=== PATIENT | male | born 1955 | race Caucasian/White ===

== ENCOUNTER 2016-08-18 17:09 | Emergency (ER) | payer OTHER, MEDICARE ==
--- NOTE | 2016-08-18 18:11 | DIAGNOSTIC IMAGING REPORT ---
PROCEDURE: XR CHEST 2 VIEW INDICATION: COUGH AND FEVER TECHNIQUE: PA and lateral views. COMPARISON: Chest 02/16/2014 and 08/05/2013 FINDINGS: Lungs are clear. Heart and mediastinum are normal. Thorax is normal. Pacemaker. IMPRESSION: 1. Negative chest.
--- NOTE | 2016-08-18 21:05 | ED CLINICAL REPORT ---
Clinical Report - Physicians/Mid Levels [facility] [address] [place] [address] 08/18/2016 17:12 Patient: MARY DOMINGUEZ Time Seen: 1721; initial patient contact. Arrived- By private vehicle. Historian- patient. HISTORY OF PRESENT ILLNESS Chief Complaint: FEVER. This started past few days and is still present. It is not gone now. Fever was abrupt in onset and has been persistent. The patient has had muscle aches, fatigue and a cough. No altered mental status, skin breakdown noted or rash or joint pain. Additional history - No known contact with a sick individual. Has not recently been ill. He is not immunocompromised. No recent hospitalization. No new medication recently administered. No recent travel. No known exposure to an animal. reports having aortic valve replacement in the remote past. Similar symptoms previously: None. REVIEW OF SYSTEMS All systems otherwise negative, except as recorded above. PAST HISTORY See nurses notes. Medications: MetFORMIN HCl Oral 500 mg, daily. Aspirin Oral. Allopurinol Oral (Tablet 300 mg), daily. Furosemide Oral (Tablet 40 mg), daily. Losartan Potassium Oral 30 MG, daily. Metoprolol Succinate Oral 50 mg, DAILY. ProAir HFA Inhalation 2 puffs, NEEDED. Symbicort Inhalation (Aerosol 160-4.5 mcg/act), NEEDED. Allergies: Tramadol. SOCIAL HISTORY Never smoker. Second-hand smoke exposure. No alcohol use or drug use. No recent travel. Is a local resident. ADDITIONAL NOTES The nursing notes have been reviewed. PHYSICAL EXAM Vital Signs: 08/18/2016 17:20 BP: 131/79. HR: 109. RR: 14. O2 saturation: 97%. Temp: 99.4 F. Pain level now: 7/10. Oxygen saturation normal. Appearance: Alert. No acute distress. (Pleasant. Cooperative. Nontoxic.). Eyes: Pupils equal, round and reactive to light. Eyes normal inspection. ENT: Ears normal. Nose normal. Pharynx normal. Uvula midline. Neck: Normal inspection. Neck supple. CVS: Normal heart rate and rhythm. 2/6 holosystolic systolic murmur with radiation to the neck (right upper sternal border). Pulses normal. Respiratory: No respiratory distress. Breath sounds normal. Chest nontender. Abdomen: Soft and nontender. Bowel sounds normal. Back: Normal inspection. No tenderness. Skin: Skin warm and dry. Normal skin color. No rash. Normal skin turgor. (No Osler's nodes. No Janeway lesions.). Extremities: Extremities exhibit normal ROM. Extremities nontender. Neuro: Oriented X 3. No motor deficit. No sensory deficit. LABS, X-RAYS, AND EKG Chest X-ray: (PROCEDURE: XR CHEST 2 VIEW INDICATION: COUGH AND FEVER TECHNIQUE: PA and lateral views. COMPARISON: Chest 02/16/2014 and 08/05/2013 FINDINGS: Lungs are clear. Heart and mediastinum are normal. Thorax is normal. Pacemaker. IMPRESSION: 1. Negative chest.). Laboratory Tests: UA-Culture if indicated: (DANICA: 08/18/2016 18:50) ( [facility] 08/18/2016 19:15) Final results Test Result Flag Units (Reference) URINE COLOR YELLOW URINE APPEARANCE CLEAR URINE GLUCOSE 3+ (NEGATIVE) URINE BILIRUBIN ICTOTEST NEGATIVE (NEGATIVE) URINE KETONE TRACE (NEGATIVE) URINE SPECIFIC GRAVITY 1.010 (1.010-1.030) URINE PH 6.5 (5.0-8.0) URINE PROTEIN 1+ (NEGATIVE) URINE UROBILINOGEN 1.0 EU/dL (0.2-1.0) URINE NITRITE NEGATIVE (NEGATIVE) URINE BLOOD TRACE (NEGATIVE) URINE LEUK ESTERASE NEGATIVE (NEGATIVE) URINE RBC 0-1 rbc/hpf (0-1) URINE WBC 0-1 wbc/hpf (0-1) URINE EPITHELIAL CELLS 0-1 EPI/hpf (0-5) URINE BACTERIA NONE SEEN (NONE SEEN) URINE COMMENT CULT NOT INDICATED URINE CULTURES ARE SET-UP BASED ON THE FOLLOWING CRITERIA:POSITIVE NITRITEPOSITIVE LEUKOCYTE ESTERASEGREATER THAN 10 WHITE BLOOD CELLSMODERATE (2+) OR GREATER BACTERIA CBC w Diff: (DANICA: 08/18/2016 17:45) ( [facility] 08/18/2016 18:00) Final results Test Result Flag Units (Reference) WHITE BLOOD COUNT 12.7 H K/uL (4.5-11.5) RED BLOOD COUNT 4.70 M/uL (4.50-5.90) HEMOGLOBIN 14.2 gm/dL (13.5-17.5) HEMATOCRIT 43.3 % (41.0-53.0) MEAN CELL VOLUME 92 fL (80-100) MEAN CORPUSCULAR HGB 30 pg (26-34) MEAN CORPUSCULAR HGB CONC 33 g/dL (31-37) RED CELL DISTRIBUTION WIDTH 14.8 % (11.6-14.8) PLATELET COUNT 223 K/uL (150-400) NEUTROPHIL % 67.1 % (50-75) LYMPH % 23.0 L % (25-40) MONO % 9.7 % (3-14) EOSINOPHIL % 0 % (0-4) BASOPHIL % 0.2 % (0-2) PT with INR: (DANICA: 08/18/2016 17:45) ( [facility] 08/18/2016 18:10) Final results Test Result Flag Units (Reference) INR 1.0 (0.8-1.2) Low Intensity Therapy: INR 1.5-2.0 PT range 18.5-23.1Mod.Intensity Therapy: INR 2.0-3.0 PT range 23.1-31.5High Intensity Therapy: INR 2.5-3.5 PT range 27.4-35.5High Intensity Therapy 2: INR 3.0-4.0 PT range 31.5-39.3 CMP: (DANICA: 08/18/2016 17:45) ( [facility] 08/18/2016 18:13) Final results Test Result Flag Units (Reference) GLUCOSE 203 H mg/dL (70-110) BUN 18 mg/dL (7-18) CREATININE 1.2 mg/dL (0.6-1.3) Estimated GFR >60 mL/min Estimated GFR- >60 mL/min Note: Persistent reduction over 3 months in eGFR<60 mL/min/1.73 m2 defines CKD. Patients with eGFR values>=60 mL/min/1.73 m2 may also have CKD if evidence ofpersistent proteinuria. Additional information may be foundat www.kidney.org. SODIUM 131 L mmol/L (136-145) POTASSIUM 4.8 mmol/L (3.5-5.1) CHLORIDE 94 L mmol/L (98-107) CARBON DIOXIDE 26 mmol/L (21-32) CALCIUM 8.6 mg/dL (8.5-10.1) TOTAL PROTEIN 8.2 g/dL (6.4-8.2) ALBUMIN 3.3 g/dL (3.3-5.0) BILIRUBIN, TOTAL 0.5 mg/dL (0.0-1.0) ALKALINE PHOSPHATASE 74 U/L (46-116) AST (SGOT) 26 U/L (15-37) ALT (SGPT) 24 U/L (12-78) RSV Rapid Screen: (DANICA: 08/18/2016 17:46) ( MsgRcvd 08/18/2016 18:30) Final results SPECIMEN DESCRIPTION: MUCUS Test Result Flag Units (Reference) RSV RAPID TEST DATE: 08/18/16 NEGATIVE SCREEN: NEGATIVE If Rapid RSV test is Negative but RSV is still suspected, a confirmatory RSV DFA can be requested. RAPID INFLUENZA SCREEN DATE: 08/18/16 INFLUENZA A: NEGATIVE SCREEN FOR INFLUENZA A INFLUENZA B: NEGATIVE SCREEN FOR INFLUENZA B . PROGRESS AND PROCEDURES Course of Care: the patient is a pleasant 60-year-old male presenting for evaluation of fever. At this time patient is having symptoms that are consistent with upper respiratory tract infection. Differential diagnoses at this time includes viral upper respiratory tract infection, bronchitis, or pneumonia. We'll also be evaluating the patient for urinary tract infection and possible metabolic derangements from his illness. Patient is noted to have a murmur on examination with history of aortic valve replacement. Patient states he does have a history of a murmur. Does not appear loud on examination and does not appear concerning for valvular insufficiency or vegetation from endocarditis. Patient also does not have any other stigmata of endocarditis on examination. If patient is not significantly improved while here in the emergency department, will consider monitoring the patient for possible endocarditis. The patient's workup is noted for negative chest x-ray. Labs or studies are noted to be significant for diabetes however no other abnormalities noted on patient's examination or history. Because the patient's negative workup and overall improvement with his symptoms following IV fluids and Tylenol, do not feel patient requires admission to the hospital or further emergency department workup/evaluation. Patient does require close monitoring however can be done as an outpatient. Patient continues to be nontoxic and in no acute distress. Head discussion with the patient in regards his workup here in the emergency department including diagnosis, home care, follow-up, and return precautions. All questions have been answered. The patient expressed understanding of these instructions and was agreeable to them. Disposition: Discharged. Condition: good. CLINICAL IMPRESSION Acute fever 08/18/2016 19:18 BP: 128/73. HR: 104. RR: 20. O2 saturation: 97%. Temp: 102.5 F. Pain level now: 5/10. Mild nausea (acute). No vomiting. Blood pressure normal. Oxygen saturation normal. Acute viral upper respiratory infection. INSTRUCTIONS Warnings: GENERAL WARNINGS: Return or contact your physician immediately if your condition worsens or changes unexpectedly, if not improving as expected, or if other problems arise. Specifically return if pain, vomiting, bleeding, breathing difficulty or fever. Your Current Medications: CONTINUE TAKING THE FOLLOWING MEDICATIONS: Allopurinol Oral : Tablet 300 mg, daily. Aspirin Oral. Furosemide Oral : Tablet 40 mg, daily. Losartan Potassium Oral : 30 MG daily. MetFORMIN HCl Oral : 500 mg daily. Metoprolol Succinate Oral : 50 mg DAILY. ProAir HFA Inhalation : 2 puffs NEEDED. Symbicort Inhalation : Aerosol 160-4.5 mcg/act, NEEDED. Prescription Medications: Zofran (orally disintegrating tablets) 4 mg: take 1 orally every 8 hours as needed for nausea and vomiting. Dispense ten (10). No refill. Substitution is permissible. Percocet 5 mg/325 mg: take 1-2 tablets orally every 6 hours as needed for pain. Dispense twelve (12). No refill. Substitution is permissible. Follow-up: Return to the emergency department as needed. Follow up with your doctor in three days. Reason for referral: recheck today's concerns. Summary of care provided to patient via paper. Screening today revealed the patient's blood pressure to be in the normal range. The patient should follow up with a primary care provider for blood pressure management. Understanding of the discharge instructions verbalized by patient. (Electronically signed by Ramirez Mccurdy Dr. 08/22/2016 7:05)
--- NOTE | 2016-08-18 21:05 | ED ORDER SUMMARY ---
..... Patient: MARY DOMINGUEZ OrderSheet [facility] VisitID: [id number] [place] [address] 60y, M Registration Date/Time: 08/18/2016 ORDER SHEET Weight: 111.1 kg (stated) Allergies: Tramadol GENERAL ORDERS: Chest 2V Urgent (17:39 08/18/2016 Jasmin Hankins) (Ack 17:42 Maury) (17:46 EHassan R.N.) Rapid Influenza Screen (Nasal Pharyngeal) (mucus) Urgent (17:40 08/18/2016 Jasmin Hankins) (Ack 17:42 Maury) (17:46 EHassan R.N.) RSV Rapid Screen (Nasal Pharyngeal) (mucus) Urgent (17:41 08/18/2016 Jasmin Hankins) (Ack 17:42 Maury) (17:46 EHassan R.N.) CBC w Diff Urgent (17:41 08/18/2016 Jasmin Hankins) (Ack 17:42 Maury) (17:46 EHassan R.N.) CMP Urgent (17:41 08/18/2016 Jasmin Hankins) (Ack 17:42 Maury) (17:46 EHassan R.N.) UA-Culture if indicated Urgent (17:41 08/18/2016 Jasmin Hankins) (Ack 17:42 Maury) (18:59 EHassan R.N.) PT with INR Urgent (17:41 08/18/2016 Jasmin Hankins) (Ack 17:42 Maury) (17:46 Ira R.N.) Pulse oximeter (17:41 08/18/2016 Jasmin Hankins) (17:46 EHassan R.N.) MEDICATION ORDERS: Tylenol PO 650 mg (NOW) (19:08 08/18/2016 Jasmin Hankins) (Ack 19:14 HSoule) (19:18 HSoule) IV FLUIDS: IV NS : initial bolus 1000 mL (1000 mL/hr), then none - for X1 (NOW) (17:39 08/18/2016 Jasmin Hankins) (18:10 Ira R.N.) Morphine IV 4 mg (HIGH ALERT MEDICATION, NOW) (18:03 08/18/2016 Jasmin Hankins) (18:11 Ira R.N.) okay per history Zofran IV 4 mg (NOW) (18:16 08/18/2016 Ira R.N. verbal order read back to Jasmin Hankins) (18:16 Ira R.N.) Morphine IV 4 mg (HIGH ALERT MEDICATION, NOW) (19:45 08/18/2016 Jasmin Hankins) (20:05 Cornel R.N.) okay per patient and hx ORDER SHEET NOTES: [Electronically signed by Fariba House (03:45 08/19/2016)] [Electronically signed by Ramirez Mccurdy Dr. (07:05 08/22/2016)] [Electronically locked/signed by Fariba House (03:45 08/19/2016)]
--- NOTE | 2016-08-18 21:05 | ED ORDER SUMMARY ---
..... Patient: MARY DOMINGUEZ OrderSheet [facility] VisitID: [id number] [place] [address] 60y, M Registration Date/Time: 08/18/2016 ORDER SHEET Weight: 111.1 kg (stated) Allergies: Tramadol GENERAL ORDERS: Chest 2V Urgent (17:39 08/18/2016 Jasmin Hankins) (Ack 17:42 Maury) (17:46 EHassan R.N.) Rapid Influenza Screen (Nasal Pharyngeal) (mucus) Urgent (17:40 08/18/2016 Jasmin Hankins) (Ack 17:42 Maury) (17:46 EHassan R.N.) RSV Rapid Screen (Nasal Pharyngeal) (mucus) Urgent (17:41 08/18/2016 Jasmin Hankins) (Ack 17:42 Maury) (17:46 EHassan R.N.) CBC w Diff Urgent (17:41 08/18/2016 Jasmin Hankins) (Ack 17:42 Maury) (17:46 EHassan R.N.) CMP Urgent (17:41 08/18/2016 Jasmin Hankins) (Ack 17:42 Maury) (17:46 EHassan R.N.) UA-Culture if indicated Urgent (17:41 08/18/2016 Jasmin Hankins) (Ack 17:42 Maury) (18:59 EHassan R.N.) PT with INR Urgent (17:41 08/18/2016 Jasmin Hankins) (Ack 17:42 Maury) (17:46 Ira R.N.) Pulse oximeter (17:41 08/18/2016 Jasmin Hankins) (17:46 EHassan R.N.) MEDICATION ORDERS: Tylenol PO 650 mg (NOW) (19:08 08/18/2016 Jasmin Hankins) (Ack 19:14 HSoule) (19:18 HSoule) IV FLUIDS: IV NS : initial bolus 1000 mL (1000 mL/hr), then none - for X1 (NOW) (17:39 08/18/2016 Jasmin Hankins) (18:10 Ira R.N.) Morphine IV 4 mg (HIGH ALERT MEDICATION, NOW) (18:03 08/18/2016 Jasmin Hankins) (18:11 Ira R.N.) okay per history Zofran IV 4 mg (NOW) (18:16 08/18/2016 Ira R.N. verbal order read back to Jasmin Hankins) (18:16 Ira R.N.) Morphine IV 4 mg (HIGH ALERT MEDICATION, NOW) (19:45 08/18/2016 Jasmin Hankins) (20:05 Cornel R.N.) okay per patient and hx ORDER SHEET NOTES: [Electronically signed by Fariba House (03:45 08/19/2016)] [Electronically signed by Ramirez Mccurdy Dr. (07:05 08/22/2016)] [Electronically locked/signed by Fariba House (03:45 08/19/2016)]
--- NOTE | 2016-08-18 21:05 | ED NURSING NOTES ---
Clinical Report - Nurses [facility] [place] [address] 08/18/2016 17:12 Patient: MARY DOMINGUEZ TRIAGE Triage time 1720 PM. Acuity: LEVEL 3. Chief Complaint: FEVER, CHILLS, SWEATS and "NOT FEELING WELL". Alert. No acute distress. SEPSIS SCREEN: Sepsis Screen. Negative (no infection suspected/documented). TOÑO COMA SCORE: [place] Coma Scale: 15- eyes open spontaneously (4); best verbal response- oriented x 4 (5); best motor response- obeys commands (6). --17:37 Roxi Price R.N. 17:20 08/18/16. BP: 131/79 (regular adult cuff) taken on the left arm, via an automated monitor, while lying. HR: 109. RR: 14. O2 saturation: 97%. Temp: 99.4 F (oral). Pain level now: 10/03. --17:37 Roxi Price R.N. Weight: 111.1 kg stated. Height/Length: 70 inches Per Patient. BMI: 35.1. --17:21 Roxi Price R.N. Medications Allopurinol Oral (Tablet 300 mg), daily. Furosemide Oral (Tablet 40 mg), daily. Losartan Potassium Oral 30 MG, daily. Metoprolol Succinate Oral 50 mg, DAILY. ProAir HFA Inhalation 2 puffs, NEEDED. Symbicort Inhalation (Aerosol 160-4.5 mcg/act), NEEDED. --17:24 Roxi Price R.N. Aspirin Oral. --17:25 Roxi Price R.N. MetFORMIN HCl Oral 500 mg, daily. --17:26 Roxi Price R.N. Allergies Tramadol. --17:24 Roxi Price R.N. Medication/allergy information source: the patient. --17:37 Roxi Price R.N. History Arrived by private vehicle. Historian: patient and family. Accompanied by friend. Primary physician (Dr. Shikha Felix). ( Pt states not feeling well for the past 2-3 days with a fever of 106-107 temp, with body aches, productive cough, abdominal pain, SOB, denies diarrhea, nauseous/ vomiting, trouble urinating. Pt states feeling "scared due to his heart working too much" Denies being around anyone sick/recent travels. Here for further work up). Onset. (2 days). He has had a sore throat, a cough and headache, abdominal pain and flank pain. No known contact with a sick individual, neck pain, difficulty with urination or diarrhea. 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 PAST MEDICAL HX: Immunizations: status is unknown. SOCIAL HX: Former smoker, end date 2013. Occasional alcohol use. No drug use. No recent travel. No infectious disease exposure. No known contact with a sick individual. ABUSE ASSESSMENT: No report of abuse. SELF HARM ASSESSMENT: A self harm assessment was performed. The patient answered "no" to the question "Do you have thoughts of harming or killing yourself?" and "Have you recently had thoughts about harming or killing others?". FALL RISK ASSESSMENT: Fall risk assessment completed. No fall risk identified. NUTRITIONAL RISK ASSESSMENT: The nutritional risk assessment revealed no deficiencies. FUNCTIONAL ASSESSMENT: Functional assessment: no impairments noted. LEARNING NEEDS ASSESSMENT: The learning needs assessment revealed no barriers. SKIN INTEGRITY ASSESSMENT: Skin integrity risk assessment completed. No skin integrity risk identified. --17:37 Roxi Price R.N. PROBLEMS: Substance Abuse. Tendonitis. Anemia. GI Bleeding. Hypertension. Hyperlipidemia. COPD - Chronic Obstructive Pulmonary Disease. Pneumonia. Chest Wall Pain. Aortic narrowing. Bronchitis. Lifestyle / Substance Problems. --17: Roxi Price R.N. Cancer [Resolved]. --17:26 Roxi Price R.N. ADDITIONAL SURGERIES: Aortic Valve Replacement. Bowel Surgery. Foot. Laparotomy. Phillip Fundoplasty. Pacemaker. Splenectomy. --17: Roxi Price R.N. Interventions ID band on patient. --17:37 Roxi Price R.N. PHYSICAL ASSESSMENT Ambulatory to room. GENERAL / NEURO / PSYCH: Alert. Oriented X 4. HEENT: Mucous membranes are pink. RESPIRATORY: Inspiratory wheezes in the left mid-lung posteriorly. Breath sounds within normal limits. CVS: Capillary refill less than 2 seconds. Pulses within normal limits. GI / : Abdomen soft and nontender. SKIN: Skin intact. Skin is warm and dry. Normal skin turgor. --17:46 Roxi Price R.N. NURSING PROGRESS NOTES The initial plan of care for this patient has been created This plan of care was discussed with the patient. Pulse oximeter and NIBP monitor placed on patient. Patient ID band checked for patient name, birthdate and medical record number: patient confirmed. Blood samples drawn from the left antecubital space peripheral IV site by nurse per protocol ; labeled in presence of the patient and sent to lab: rainbow set. Patient gowned. Reassurance given. Patient ID band checked for patient name, birthdate and medical record number: patient confirmed. Flu swab obtained by RN via nasal swab. Labeled in the presence of the patient and sent to lab. Two patient identifiers checked. Call light placed in reach. Side rails up x 1. Bed placed in lowest position. --17:47 Roxi Price R.N. 17:42 08/18/2016 Site #1 started via IV in the left antecubital space with an 20g angiocath; one attempt. Blood drawn: rainbow set. Labeled in the presence of the patient and sent to the lab. --17:47 Roxi Price R.N. Patient transported. (1748 PM). --17:48 Roxi Price R.N. 18:10 08/18/2016 Started bag #1 1000 mL IV Fluids IV NS (Saline); at 1000 mL/hr over 1 hour(s) via site #1 via IV pump. Allergies verified and confirmed 5 rights. IV patency established. IV site checked: no pain, redness, or swelling. IV flushed thoroughly pre- and post-medication administration. Completed per protocol. --18:10 Roxi Price R.N. 18:11 08/18/2016 Morphine IVP 4 mg given over 30 second(s) via site #1. Allergies verified, confirmed 5 rights and sedative warning given to the patient and patient's family. IV patency established. IV site checked: no pain, redness, or swelling. IV flushed thoroughly pre- and post-medication administration. IVP given by RN. --18:11 Roxi Price R.N. Patient returned from radiology. (1800 PM). --18:12 Roxi Price R.N. Monitoring of patient in place. Reassurance given. The patient is calm. Overall patient status is the same- he states feels the same. GENERAL / NEURO / PSYCH: Denies headache. RESPIRATORY: Denies difficulty breathing. CVS: Denies chest pain. GI / : The patient reports nausea. Two patient identifiers checked. Call light placed in reach. Side rails up. --18:14 Roxi Price R.N. 18:00 08/18/16. BP: 135/78. HR: 112. RR: 18. O2 saturation: 97%. Pain level now: 10/03. --18:14 Roxi Price R.N. 18:16 08/18/2016 Zofran (Ondansetron HCl) IVP 4 mg given over 2 minute(s) via site #1. Allergies verified and confirmed 5 rights. IV patency established. IV site checked: no pain, redness, or swelling. IV flushed thoroughly pre- and post-medication administration. IVP given by RN. --18:16 Roxi Price R.N. 18:55 08/18/16. BP: 144/80. HR: 99. RR: 16. O2 saturation: 96% on room air. Temp: 100.6 F (oral). Pain level now: 04/05. --18:59 Roxi Price R.N. Pulse oximeter and NIBP monitor placed on patient; monitor alarms on. Reassessment after fluids administered. He is calm and resting quietly. Overall patient status is improved- he states feels the same. ( Pt still feeling "short and shallow breathing" temp is up 100.6 will notify MD). GENERAL / NEURO / PSYCH: Alert. Oriented X 4. RESPIRATORY: Denies difficulty breathing. CVS: Denies chest pain. Patient identifiers checked. Call light placed in reach. --18:59 Roxi Price R.N. 18:59 08/18/2016 Zofran IVP Response: no adverse reaction pain is improving. Symptoms have improved the patient feels better. --18:59 Roxi Price R.N. 18:59 08/18/2016 Morphine IVP Response: no adverse reaction pain is improving. Symptoms have improved the patient feels better. --18:59 Roxi Price R.N. Care transferred and report given (GLENNA Staley). --19:06 Roxi Price R.N. 19:11 08/18/2016 Site #1 reassessed; patent, infusing well and no signs of infection or infiltration. Good blood return present. Converted to saline lock. --19:11 Thad Khan R.N. 19:11 08/18/2016 IV Fluids IV NS Discontinued: bag #1 completed. Total amount infused: 1000 mL. IV patency established. IV site checked: no pain, redness, or swelling. IV flushed thoroughly. --19:11 Thad Khan R.N. 19:18 08/18/2016 Tylenol (Acetaminophen) PO Tablets 650 mg given. Allergies verified and confirmed 5 rights. --19:18 Fariba House 19:18 08/18/16. BP: 128/73. HR: 104. RR: 20. O2 saturation: 97% on room air. Temp: 102.5 F (oral). Pain level now: 08/03. --19:19 Fariba House 19:43 08/18/16. BP: 128/73. HR: 100. RR: 12. O2 saturation: 94%. Temp: 100.8 F. Pain level now: 09/03. --19:45 Rebeka Shay R.N. Reassessment after medication administered. He is calm and resting quietly. GENERAL / NEURO / PSYCH: Alert. Oriented X 4. RESPIRATORY: No respiratory distress. SKIN: Skin is warm and dry. --19:45 Rebeka Shay R.N. 19:55 08/18/2016 Morphine IVP 4 mg given over 2 minute(s) via site #1. Allergies verified, confirmed 5 rights and sedative warning given to the patient. IV patency established. IV site checked: no pain, redness, or swelling. IV flushed thoroughly pre- and post-medication administration. IVP given by RN. --20:05 Rebeka Shay R.N. DISPOSITION / DISCHARGE Departure time: 21:41 Aug 18 2016. Condition at departure: improved. No learning barriers present. Discharge instructions provided and reviewed with the patient. Reviewed medication(s) side effects, precautions, dosing and course information. Prescription(s) given to the patient. Reviewed referral to a primary care physician for followup. Patient verbalized understanding. Written instructions provided in Yi. The patient was discharged home and accompanied by spouse. He left the Emergency Department ambulatory and via private vehicle. Spouse driving. FALL RISK ASSESSMENT: Fall risk assessment completed. No fall risk identified. --21:41 Rebeka Shay R.N. 21:40 08/18/16. BP: 117/55. HR: 93. RR: 16. O2 saturation: 94%. Temp: 98.8 F. --21:41 Rebeka Shay R.N. 21:42 08/18/16. Pain level now: 06/03. --21:42 Rebeka Shay R.N. Locked/Released at 08/19/2016 3:45 by Fariba House
--- NOTE | 2016-08-22 07:05 | ED MAR SUMMARY ---
..... Medication Administration Record [facility] [address] [place] [address] Patient: MARY DOMINGUEZ Visit ID: [id number] 60y, M Weight: 111.1 kg Height/Length: 70 in BMI: 35.1 ALLERGIES: Tramadol Start 18:10 08/18/2016 Roxi Price R.N., Stop 19:11 08/18/2016 Thad Khan R.N. Medication Administered: IV NS (SALINE), Dose: IV Fluids over 1 hour(s), Rate: 1000 mL/hr, Dispensed: 1000 mL bag, Site: #1 left AC. Medication Ordered: IV NS : initial bolus 1000 mL (1000 mL/hr), then none - for X1 (NOW). Given 18:11 08/18/2016 Roxi Price R.N. Medication Administered: MORPHINE [IVP], Dose: 4 mg IVP over 30 second(s), Site: #1 left AC. Medication Ordered: Morphine IV 4 mg (HIGH ALERT MEDICATION, NOW). Given 18:16 08/18/2016 Roxi Price R.N. Medication Administered: ZOFRAN [IVP] (ONDANSETRON HCL), Dose: 4 mg IVP over 2 minute(s), Site: #1 left AC. Medication Ordered: Zofran IV 4 mg (NOW). Given 19:18 08/18/2016 Fariba House, Medication Administered: TYLENOL [PO] (ACETAMINOPHEN), Dose: 650 mg Tablets PO. Medication Ordered: Tylenol PO 650 mg (NOW). Given 19:55 08/18/2016 Rebeka Shay R.N. Medication Administered: MORPHINE [IVP], Dose: 4 mg IVP over 2 minute(s), Site: #1. Medication Ordered: Morphine IV 4 mg (HIGH ALERT MEDICATION, NOW).
--- NOTE | 2016-08-22 07:05 | ED MED RECONCILIATION SUMMARY ---
Patient: MARY DOMINGUEZ Medication Reconciliation Report [facility] VisitID: [id number] [place] [address] 60y, M Registration Date/Time: 08/18/2016 Weight: 111.1 kg Height/Length: 70 in. BMI: 35.1 ALLERGIES: Tramadol The patient's Home Medications are listed below: CONTINUE TAKING THE FOLLOWING MEDICATIONS: Allopurinol Oral (300 mg), daily Aspirin Oral Furosemide Oral (40 mg), daily Losartan Potassium Oral 30 MG, daily MetFORMIN HCl Oral 500 mg, daily Metoprolol Succinate Oral 50 mg, DAILY ProAir HFA Inhalation 2 puffs, NEEDED Symbicort Inhalation (160-4.5 mcg/act), NEEDED The source(s) of the original Home Medication information: patient The following Medications were given to the patient in the Emergency Department: IV NS IV Fluids bolus 0, then 1000 mL/hr, administered: 08/18/2016 6:10:00 PM Morphine [IVP] IVP 4 mg, administered: 08/18/2016 6:11:00 PM Zofran [IVP] IVP 4 mg, administered: 08/18/2016 6:16:00 PM Tylenol [PO] PO 650 mg, administered: 08/18/2016 7:18:00 PM Morphine [IVP] IVP 4 mg, administered: 08/18/2016 7:55:00 PM The following Medications were prescribed to the patient: Zofran (orally disintegrating tablets) 4 mg: take 1 orally every 8 hours as needed for nausea and vomiting. Dispense ten (10). No refill. Substitution is permissible. -- Ramirez Mccurdy Dr. Percocet 5 mg/325 mg: take 1-2 tablets orally every 6 hours as needed for pain. Dispense twelve (12). No refill. Substitution is permissible. -- Ramirez Mccurdy Dr.
--- NOTE | 2016-08-22 07:05 | ED DISCHARGE INSTRUCTIONS ---
Patient: MARY DOMINGUEZ General Instructions [facility] VisitID: [id number] [place] [address] 60y, M Registration Date/Time: 08/18/2016 Acute fever 08/18/2016 19:18 BP: 128/73. HR: 104. RR: 20. O2 saturation: 97%. Temp: 102.5 F. Pain level now: 5/10. Mild nausea (acute). No vomiting. Blood pressure normal. Oxygen saturation normal. Acute viral upper respiratory infection. INSTRUCTIONS Warnings: GENERAL WARNINGS: Return or contact your physician immediately if your condition worsens or changes unexpectedly, if not improving as expected, or if other problems arise. Specifically return if pain, vomiting, bleeding, breathing difficulty or fever. Your Current Medications: CONTINUE TAKING THE FOLLOWING MEDICATIONS: Allopurinol Oral : Tablet 300 mg, daily. Aspirin Oral. Furosemide Oral : Tablet 40 mg, daily. Losartan Potassium Oral : 30 MG daily. MetFORMIN HCl Oral : 500 mg daily. Metoprolol Succinate Oral : 50 mg DAILY. ProAir HFA Inhalation : 2 puffs NEEDED. Symbicort Inhalation : Aerosol 160-4.5 mcg/act, NEEDED. Prescription Medications: Zofran (orally disintegrating tablets) 4 mg: take 1 orally every 8 hours as needed for nausea and vomiting. Dispense ten (10). No refill. Substitution is permissible. Percocet 5 mg/325 mg: take 1-2 tablets orally every 6 hours as needed for pain. Dispense twelve (12). No refill. Substitution is permissible. Follow-up: Return to the emergency department as needed. Follow up with your doctor in three days. Reason for referral: recheck today's concerns. Summary of care provided to patient via paper. Screening today revealed the patient's blood pressure to be in the normal range. The patient should follow up with a primary care provider for blood pressure management. Understanding of the discharge instructions verbalized by patient. ADDITIONAL INFORMATION Febrile Illness, Uncertain Cause (Adult) You have a fever, but the cause is not certain. A fever is a natural reaction of the body to an illness such as infections due to a virus or bacteria. In most cases, the temperature itself is not harmful. It actually helps the body fight infections. A fever does not need to be treated unless you feel very uncomfortable. Sometimes a fever can be an early sign of a more serious infection. Therefore, you should watch for the signs listed below. Home Care: If signs and symptoms are severe, rest at home for the first 2-3 days. When you resume activity, don't let yourself get too tired. Stay away from cigarette smoke (yours and other peoples). You may use acetaminophen (Tylenol) or ibuprofen (Motrin, Advil) to control fever or pain, unless another medicine was prescribed. NOTE: If you have chronic liver or kidney disease or ever had a stomach ulcer or GI bleeding, talk with your doctor before using these medicines. (Aspirin should never be used in anyone under 18 years of age who is ill with a fever. It may cause severe liver damage.) Your appetite may be poor, so a light diet is fine. Avoid dehydration by drinking 6-8 glasses of fluid per day (water, sport drinks such as Gatorade, sodas without caffeine, juices, tea, soup). Extra fluid will help loosen secretions in the nose and lungs. Yweh-oqr-cepxmpn products will not shorten the duration of the illness but may be helpful for the following symptoms: cough (Robitussin DM); sore throat (Chloraseptic lozenges or spray); nasal and sinus congestion (Actifed or Sudafed). NOTE: Do not use decongestants if you have high blood pressure. Follow Up with your doctor or as advised if you do not start to improve over the next week. Get Prompt Medical Attention if any of the following occur: Cough with lots of colored sputum (mucus) or blood in your sputum Chest pain, shortness of breath, wheezing or difficulty breathing Severe headache, face, neck, throat or ear pain Feeling drowsy or confused Abdominal pain, repeated vomiting or diarrhea Joint pain or a new rash Burning when urinating Fever of 100.4F (38C) oral or higher, not better with fever medication Feeling weak or dizzy Convulsion Viral Respiratory Illness [Adult] You have an Upper Respiratory Illness (URI) caused by a virus. This illness is contagious during the first few days. It is spread through the air by coughing and sneezing or by direct contact (touching the sick person and then touching your own eyes, nose or mouth). Most viral illnesses go away within 7-10 days with rest and simple home remedies. Sometimes, the illness may last for several weeks. Antibiotics will not kill a virus and are generally not prescribed for this condition. Home Care: 1) If symptoms are severe, rest at home for the first 2-3 days. When you resume activity, don't let yourself get too tired. 2) Avoid being exposed to cigarette smoke (yours or others). 3) Tylenol (acetaminophen) or ibuprofen (Advil, Motrin) will help fever, muscle aching and headache. (Persons under 18 with fever should not take aspirin since this may cause liver damage.) 4) Your appetite may be poor, so a light diet is fine. Avoid dehydration by drinking 6-8 glasses of fluids per day (water, soft drinks, juices, tea, soup). Extra fluids will help loosen secretions in the nose and lungs. 5) Dmih-nwe-bbkupzd cold medicines will not shorten the length of time youre sick, but they may be helpful for the following symptoms: cough (Robitussin DM); sore throat (Chloraseptic lozenges or spray); nasal and sinus congestion (Actifed, Sudafed, Chlortrimeton). Follow Up with your doctor or as advised if you dont improve over the next week. Get Prompt Medical Attention if any of the following occur: -- Cough with lots of colored sputum (mucus) or blood in your sputum -- Chest pain, shortness of breath, wheezing or have trouble breathing -- Severe headache; face, neck or ear pain -- Fever over 100.4 F (38.0 C) for more than three days -- You cant swallow due to throat pain Ondansetron Oral disintegrating tablet What is this medicine? ONDANSETRON (on KARY se yazmin) is used to treat nausea and vomiting caused by chemotherapy. It is also used to prevent or treat nausea and vomiting after surgery. How should I use this medicine? These tablets are made to dissolve in the mouth. Do not try to push the tablet through the foil backing. With dry hands, peel away the foil backing and gently remove the tablet. Place the tablet in the mouth and allow it to dissolve, then swallow. While you may take these tablets with water, it is not necessary to do so. Talk to your orthopedic specialist regarding the use of this medicine in children. Special care may be needed. What side effects may I notice from receiving this medicine? Side effects that you should report to your doctor or health career and guidance counselor as soon as possible: allergic reactions like skin rash, itching or hives, swelling of the face, lips, or tongue breathing problems dizziness fast or irregular heartbeat feeling faint or lightheaded, falls fever and chills swelling of the hands and feet tightness in the chest Side effects that usually do not require medical attention (report to your doctor or health career and guidance counselor if they continue or are bothersome): constipation or diarrhea headache What may interact with this medicine? Do not take this medicine with any of the following medications: -apomorphine -cisapride -dofetilide -dronedarone -pimozide -thioridazine -ziprasidone This medicine may also interact with the following medications: -carbamazepine -phenytoin -rifampicin -tramadol -other medicines that prolong the QT interval (cause an abnormal heart rhythm) What if I miss a dose? If you miss a dose, take it as soon as you can. If it is almost time for your next dose, take only that dose. Do not take double or extra doses. Where should I keep my medicine? Keep out of the reach of children. Store between 2 and 30 degrees C (36 and 86 degrees F). Throw away any unused medicine after the expiration date. What should I tell my health care provider before I take this medicine? They need to know if you have any of these conditions: heart disease history of irregular heartbeat liver disease low levels of magnesium or potassium in the blood an unusual or allergic reaction to ondansetron, granisetron, other medicines, foods, dyes, or preservatives or trying to get breast-feeding What should I watch for while using this medicine? Check with your doctor or health career and guidance counselor as soon as you can if you have any sign of an allergic reaction. Oxycodone Hydrochloride, Acetaminophen Oral tablet What is this medicine? ACETAMINOPHEN; OXYCODONE (a set a SIERRA bautista fen; ox i KOE done) is a pain reliever. It is used to treat mild to moderate pain. How should I use this medicine? Take this medicine by mouth with a full glass of water. Follow the directions on the prescription label. Take your medicine at regular intervals. Do not take your medicine more often than directed. Talk to your orthopedic specialist regarding the use of this medicine in children. Special care may be needed. Patients over 65 years old may have a stronger reaction and need a smaller dose. What side effects may I notice from receiving this medicine? Side effects that you should report to your doctor or health career and guidance counselor as soon as possible: allergic reactions like skin rash, itching or hives, swelling of the face, lips, or tongue breathing difficulties, wheezing confusion light headedness or fainting spells severe stomach pain yellowing of the skin or the whites of the eyes Side effects that usually do not require medical attention (report to your doctor or health career and guidance counselor if they continue or are bothersome): dizziness drowsiness nausea vomiting What may interact with this medicine? alcohol antihistamines barbiturates like amobarbital, butalbital, butabarbital, methohexital, pentobarbital, phenobarbital, thiopental, and secobarbital benztropine drugs for bladder problems like solifenacin, trospium, oxybutynin, tolterodine, hyoscyamine, and methscopolamine drugs for breathing problems like ipratropium and tiotropium drugs for certain stomach or intestine problems like propantheline, homatropine methylbromide, glycopyrrolate, atropine, belladonna, and dicyclomine general anesthetics like etomidate, ketamine, nitrous oxide, propofol, desflurane, enflurane, halothane, isoflurane, and sevoflurane medicines for depression, anxiety, or psychotic disturbances medicines for sleep muscle relaxants naltrexone narcotic medicines (opiates) for pain phenothiazines like perphenazine, thioridazine, chlorpromazine, mesoridazine, fluphenazine, prochlorperazine, promazine, and trifluoperazine scopolamine tramadol trihexyphenidyl What if I miss a dose? If you miss a dose, take it as soon as you can. If it is almost time for your next dose, take only that dose. Do not take double or extra doses. Where should I keep my medicine? Keep out of the reach of children. This medicine can be abused. Keep your medicine in a safe place to protect it from theft. Do not share this medicine with anyone. Selling or giving away this medicine is dangerous and against the law. Store at room temperature between 20 and 25 degrees C (68 and 77 degrees F). Keep container tightly closed. Protect from light. This medicine may cause accidental overdose and if it is taken by other adults, children, or pets. Flush any unused medicine down the toilet to reduce the chance of harm. Do not use the medicine after the expiration date. What should I tell my health care provider before I take this medicine? They need to know if you have any of these conditions: brain tumor Crohn's disease, inflammatory bowel disease, or ulcerative colitis drink more than 3 alcohol containing drinks per day drug abuse or addiction head injury heart or circulation problems kidney disease or problems going to the bathroom liver disease lung disease, asthma, or breathing problems an unusual or allergic reaction to acetaminophen, oxycodone, other opioid analgesics, other medicines, foods, dyes, or preservatives or trying to get breast-feeding What should I watch for while using this medicine? Tell your doctor or health career and guidance counselor if your pain does not go away, if it gets worse, or if you have new or a different type of pain. You may develop tolerance to the medicine. Tolerance means that you will need a higher dose of the medication for pain relief. Tolerance is normal and is expected if you take this medicine for a long time. Do not suddenly stop taking your medicine because you may develop a severe reaction. Your body becomes used to the medicine. This does NOT mean you are addicted. Addiction is a behavior related to getting and using a drug for a non-medical reason. If you have pain, you have a medical reason to take pain medicine. Your doctor will tell you how much medicine to take. If your doctor wants you to stop the medicine, the dose will be slowly lowered over time to avoid any side effects. You may get drowsy or dizzy. Do not drive, use machinery, or do anything that needs mental alertness until you know how this medicine affects you. Do not stand or sit up quickly, especially if you are an older patient. This reduces the risk of dizzy or fainting spells. Alcohol may interfere with the effect of this medicine. Avoid alcoholic drinks. There are different types of narcotic medicines (opiates) for pain. If you take more than one type at the same time, you may have more side effects. Give your health care provider a list of all medicines you use. Your doctor will tell you how much medicine to take. Do not take more medicine than directed. Call emergency for help if you have problems breathing. The medicine will cause constipation. Try to have a bowel movement at least every 2 to 3 days. If you do not have a bowel movement for 3 days, call your doctor or health career and guidance counselor. Do not take Tylenol (acetaminophen) or medicines that have acetaminophen with this medicine. Too much acetaminophen can be very dangerous. Many nonprescription medicines contain acetaminophen. Always read the labels carefully to avoid taking more acetaminophen. You have been given the following additional information: Febrile Illness, Uncertain Cause (Adult) Uri, Viral, No Abx (Adult) Ondansetron Oral disintegrating tablet Oxycodone Hydrochloride, Acetaminophen Oral tablet (Electronically signed by Ramirez Mccurdy Dr. 08/22/2016 7:05)
--- NOTE | 2016-08-22 07:05 | ED MAR SUMMARY ---
..... Medication Administration Record [facility] [address] [place] [address] Patient: MARY DOMINGUEZ Visit ID: [id number] 60y, M Weight: 111.1 kg Height/Length: 70 in BMI: 35.1 ALLERGIES: Tramadol Start 18:10 08/18/2016 Roxi Price R.N., Stop 19:11 08/18/2016 Thad Khan R.N. Medication Administered: IV NS (SALINE), Dose: IV Fluids over 1 hour(s), Rate: 1000 mL/hr, Dispensed: 1000 mL bag, Site: #1 left AC. Medication Ordered: IV NS : initial bolus 1000 mL (1000 mL/hr), then none - for X1 (NOW). Given 18:11 08/18/2016 Roxi Price R.N. Medication Administered: MORPHINE [IVP], Dose: 4 mg IVP over 30 second(s), Site: #1 left AC. Medication Ordered: Morphine IV 4 mg (HIGH ALERT MEDICATION, NOW). Given 18:16 08/18/2016 Roxi Price R.N. Medication Administered: ZOFRAN [IVP] (ONDANSETRON HCL), Dose: 4 mg IVP over 2 minute(s), Site: #1 left AC. Medication Ordered: Zofran IV 4 mg (NOW). Given 19:18 08/18/2016 Fariba House, Medication Administered: TYLENOL [PO] (ACETAMINOPHEN), Dose: 650 mg Tablets PO. Medication Ordered: Tylenol PO 650 mg (NOW). Given 19:55 08/18/2016 Rebeka Shay R.N. Medication Administered: MORPHINE [IVP], Dose: 4 mg IVP over 2 minute(s), Site: #1. Medication Ordered: Morphine IV 4 mg (HIGH ALERT MEDICATION, NOW).
--- NOTE | 2016-08-22 07:05 | ED MED RECONCILIATION SUMMARY ---
Patient: MARY DOMINGUEZ Medication Reconciliation Report VisitID: [id number] [place] [address] 60y, M Registration Date/Time: 08/18/2016 Weight: 111.1 kg Height/Length: 70 in. BMI: 35.1 ALLERGIES: Tramadol The patient's Home Medications are listed below: CONTINUE TAKING THE FOLLOWING MEDICATIONS: Allopurinol Oral (300 mg), daily Aspirin Oral Furosemide Oral (40 mg), daily Losartan Potassium Oral 30 MG, daily MetFORMIN HCl Oral 500 mg, daily Metoprolol Succinate Oral 50 mg, DAILY ProAir HFA Inhalation 2 puffs, NEEDED Symbicort Inhalation (160-4.5 mcg/act), NEEDED The source(s) of the original Home Medication information: patient The following Medications were given to the patient in the Emergency Department: IV NS IV Fluids bolus 0, then 1000 mL/hr, administered: 08/18/2016 6:10:00 PM Morphine [IVP] IVP 4 mg, administered: 08/18/2016 6:11:00 PM Zofran [IVP] IVP 4 mg, administered: 08/18/2016 6:16:00 PM Tylenol [PO] PO 650 mg, administered: 08/18/2016 7:18:00 PM Morphine [IVP] IVP 4 mg, administered: 08/18/2016 7:55:00 PM The following Medications were prescribed to the patient: Zofran (orally disintegrating tablets) 4 mg: take 1 orally every 8 hours as needed for nausea and vomiting. Dispense ten (10). No refill. Substitution is permissible. -- Ramirez Mccurdy Dr. Percocet 5 mg/325 mg: take 1-2 tablets orally every 6 hours as needed for pain. Dispense twelve (12). No refill. Substitution is permissible. -- Ramirez Mccurdy Dr.
== END 2016-08-18 21:40 | disposition home or self-care (01) ==
LOC: ED SRH 17:09
DX: R11.0 Nausea (principal); J06.9 Acute upper respiratory infection, unspecified; I10 Essential (primary) hypertension; J44.9 Chronic obstructive pulmonary disease, unspecified; Z79.899 Other long term (current) drug therapy
CPT/HCPCS: 90004; 90100; 91400; 91576; 94060; 95059